=== PATIENT | female | born 1985 ===

== ENCOUNTER 2019-01-31 08:45 | Inpatient (IN) ==
[2019-01-31] MEDS ORDERED: LIDOCAINE 1% 50 ML VIAL ONE (09:09)
[2019-01-31] MEDS ORDERED: miSOPROStoL 200 MCG TABLET ONE (09:09)
[2019-01-31] MEDS ORDERED: OXYTOCIN/LR 20 UNIT/1,000 ML BAG IV ONE ×2 (09:10→14:11)
[2019-01-31] MEDS ORDERED: ONDANSETRON 4 MG/2 ML VIAL IV PRN (09:16)
[2019-01-31] MEDS ORDERED: BUTORPHANOL 2 MG/ML VIAL IV PRN (09:16)
[2019-01-31] MEDS ORDERED: MEPERIDINE 50 MG/1 ML VIAL IV PRN (09:16)
[2019-01-31] MEDS ORDERED: LACTATED RINGERS 1,000 ML IV SCH (09:30)
[2019-01-31 09:34] LABS: Basophils % 0.3 % (0.0-0.8); Eosinophils % 0.3 % (0.00-10.9); Hematocrit 39.3 VOL% (35.7-47.0); Hemoglobin 13.4 GM/DL (12.0-16.0); Immature Granulocytes % 0.9 %; Immature Granulocytes Absolute 0.09 #; Lymphocytes # 1.7 10*3/uL (1.4-4.0); Lymphocytes % 16.6 % (21.3-54.2); Mean Corpuscular HGB Conc 34.1 GM/DL (32-36); Mean Corpuscular Volume 88.3 FL (87-102); Mean Platelet Volume 9.2 FL (9.6-12.0); Monocytes % 3.9 % (1.7-12.7); Platelet Count 244 T/CUMM (130-400); Red Blood Count 4.45 MC/CUMM (3.8-5.5); Red Cell Distribution Width 14.7 % (9.3-17.3); White Blood Count 10.4 T/CUMM (4-12)
[2019-01-31 09:57] LABS: Albumin 2.7 G/DL (3.4-5.0); Bilirubin,Total 0.5 MG/DL (0.2-1.0); Calcium 8.5 MG/DL (8.5-10.1); Osmolality,Calculated 276.5 MOS/KG (273-304); Total Protein 6.8 G/DL (6.4-8.3)
[2019-01-31 10:16] LABS: Cord Venous Blood HCO3 17.6 MMOL/L; Cord Venous Blood PCO2 41.4 MMHG
[2019-01-31] MEDS: IBUPROFEN 800 MG TABLET PO PRN ×2 (12:38→15:25)
[2019-01-31] MEDS ORDERED: oxyCODONE/ACETAMINOPHEN 5-325 MG TABLET PO PRN (14:11)
[2019-01-31] MEDS ORDERED: LANOLIN 50% CREAM 0.3 OZ TUBE TOP PRN (14:11)
[2019-01-31] MEDS ORDERED: ACETAMINOPHEN 325 MG TABLET PO PRN (14:11)
[2019-01-31] MEDS ORDERED: BENZOCAINE 20%/MENTHOL 0.5% SPRAY 56 GM CAN TOP PRN (14:11)
[2019-01-31] MEDS ORDERED: MEASLES/MUMPS/RUBELLA VACCINE 0.5 ML VIAL SUBCUT ONE (14:11)
[2019-01-31] MEDS ORDERED: DIPH/TET/ACEL PERT BOOSTER VACCINE 0.5 ML VIAL IM ONE (14:11)
[2019-01-31] MEDS ORDERED: HYDROCORTISONE 2.5% RECTAL CREAM 30 GM TUBE TOP PRN (14:11)
[2019-01-31] MEDS ORDERED: BISACODYL 10 MG SUPP RECTAL PRN (14:11)
[2019-01-31] MEDS ORDERED: WITCH HAZEL PADS 100/JAR TOP PRN (14:11)
[2019-01-31] MEDS ORDERED: RHO(D) IMMUNE GLOBULIN 300 MCG SYRINGE IM ONE (14:11)
[2019-01-31] MEDS ORDERED: IBUPROFEN 800 MG TABLET PO PRN (14:11)
[2019-01-31] MEDS: DOCUSATE SODIUM 100 MG CAPSULE PO SCH (21:53)
[2019-02-01 06:40] LABS: Basophils # 0.1 10*3/uL (0.0-0.2); Basophils % 0.4 % (0.0-0.8); Eosinophils # 0.1 10*3/uL (0.0-0.87); Hematocrit 30.6 VOL% (35.7-47.0); Immature Granulocytes % 0.9 %; Lymphocytes # 3.1 10*3/uL (1.4-4.0); Lymphocytes % 27.2 % (21.3-54.2); Mean Corpuscular HGB Conc 33.7 GM/DL (32-36); Mean Corpuscular Volume 90.5 FL (87-102); Monocytes % 5.6 % (1.7-12.7); Neutrophils % 64.9 % (38.7-73.9); Platelet Count 214 T/CUMM (130-400); White Blood Count 11.5 T/CUMM (4-12)
[2019-02-01 06:51] LABS: Hemoglobin 10.3 GM/DL (12.0-16.0); Red Blood Count 3.38 MC/CUMM (3.8-5.5)
[2019-02-01] MEDS: DOCUSATE SODIUM 100 MG CAPSULE PO SCH ×2 (08:10→20:54)
[2019-02-01] MEDS: oxyCODONE/ACETAMINOPHEN 5-325 MG TABLET PO PRN ×2 (08:10→18:58)
[2019-02-01] MEDS: IBUPROFEN 800 MG TABLET PO PRN (18:57)
[2019-02-02] MEDS: DOCUSATE SODIUM 100 MG CAPSULE PO SCH (08:30)
[2019-02-02] MEDS: IBUPROFEN 800 MG TABLET PO PRN (08:30)
[2019-02-02] MEDS: oxyCODONE/ACETAMINOPHEN 5-325 MG TABLET PO PRN (08:31)
[2019-02-02 08:49] VITALS: BP 143/71
== END 2019-02-02 11:00 | disposition home or self-care (01) | DRG 807 ==
LOC: N.LDOUT 08:45 → N.LD 08:47 → N.OB 14:11
PROVIDERS: ADMIT Obstetrics & Gynecology; ATTEND Obstetrics & Gynecology